=== PATIENT | male | born 1960 | race African-American/Black ===

== ENCOUNTER 2016-11-28 21:12 | Emergency (ER) | payer OTHER ==
[~2016-11-28] VITALS: Ht 175.3 cm; Wt 81.7 kg
[~2016-11-28 21:12] MED LIST: ACETAMINOPHEN650 M5 PO; ASPIRIN EC81 M1 PO; CLEOCIN HCL300 MG PO; CYCLOBENZAPRINE5 MG PO; FOSINOPRIL SODI40 M1 PO; GLUCOPHAGE1000 MG PO; IBUPROFEN 600600 M1 PO; LANTUS SC; LANTUS SUBQ; LEVEMIR SQ; MELOXICAM15 MG PO; NEURONTIN 300300 M1 PO; NORCO 5-325 TA1 EACH PO; NOVOLOG100 UNIT/1; NOVOLOG100 UNIT/1 SQ; NOVOLOG100 UNIT/1 SUBQ; OXYCODONE HCL15 MG PO; PERCOCET 5-3251 EACH PO; PHENERGAN 25 MG25 M1 PO; SIMVASTATIN40 MG PO; TYLENOL325 MG PO; UNICOMPLEX M TA1 TA1 PO; ZOFRAN4 MG PO; [UNRECOGNIZED DRUG - OTHER] PO
[2016-11-28] MEDS ORDERED: BUTALB-APAP-CA1 EACH PO (22:32)
[2016-11-28] MEDS ORDERED: ZOFRAN ODT8 MG PO (22:32)
== END 2016-11-28 22:39 | disposition home or self-care (01) ==
LOC: ER 21:12
DX: T38.3X5A Adverse effect of insulin and oral hypoglycemic [antidiabetic] drugs, initial encounter (principal); R51 Headache; R11.10 Vomiting, unspecified; Y92.89 Other specified places as the place of occurrence of the external cause; E11.9 Type 2 diabetes mellitus without complications; I10 Essential (primary) hypertension; Z91.041 Radiographic dye allergy status; F10.99 Alcohol use, unspecified with unspecified alcohol-induced disorder

== ENCOUNTER 2017-10-31 20:33 | Emergency (ER) | payer OTHER ==
[~2017-10-31] VITALS: Ht 175.3 cm; Wt 83.9 kg
--- NOTE | ~2017-10-31 | EKG ---
[place] [address] [facility] [place] [address] ELECTROCARDIOGRAM REPORT Name: SONAL MONTEIRO [id number] Admission: 10/31/17 Attend Phys: Discharge: 10/31/17 Date of : 60 Report #: [id number] THIS REPORT FOR: //name// [facility] ED Test Date: 2017-10-31 Test Time: 20:43:29 Pat Name: SONAL MONTEIRO Department: Room: Gender: M [employer] Supervisor: ANGELO : 1960 Requested By: Kenny Wayne Order Number: [id number] MD: Edwin Yi Measurements Intervals [place] Rate: 81 P: 43 MS: 145 QRS: 3 QRSD: 85 T: 23 QT: 372 QTc: 432 Interpretive Statements Sinus rhythm Probable left atrial enlargement Abnormal R-wave progression, early transition Compared to ECG 07/14/2014 23:51:35 No significant changes Electronically Signed On 11-01-2017 14:07:02 CDT by Edwin Yi [email or web address] <ELECTRONICALLY SIGNED> By: Edwin Yi MD, [facility] 11/01/17 1407 2043 42 Edwin Yi MD, FACC /EPI
[~2017-10-31 20:33] MED LIST changes: +BUTALB-APAP-CA1 EACH PO; +ZOFRAN ODT8 MG PO
[2017-10-31 20:58] LABS: ABSOLUTE NEUTROPHILS 6.9 thou/uL (1.4-8.2); BASOPHILS 0.8 % (0.0-2.0); EOSINOPHILS 1.3 % (0.0-3.0); HEMATOCRIT 41.5 % (42.0-52.0); LYMPHOCYTES 13.5 % (24.0-44.0); MCH 32.7 pg (26.0-34.0); MCHC 33.8 g/dL (28.0-37.0); MCV 96.6 fL (80.0-100.0); MONOCYTES 8.1 % (1.0-8.0); PLATELET COUNT 228 thou/uL (150-400); POLYS 76.3 % (36.0-66.0); RBC 4.29 mil/uL (4.50-6.00); RDW 13.8 % (10.5-14.5)
[2017-10-31 21:14] LABS: ANION GAP 8 mmol/L (7-16); BUN 10 mg/dL (7-18); CALCIUM 9.5 mg/dL (8.5-10.1); CHLORIDE 104 mmol/L (98-107); CO2 26 mmol/L (21-32); CREATININE 0.8 mg/dL (0.7-1.3); GLUCOSE 95 mg/dL (74-106); POTASSIUM 3.5 mmol/L (3.5-5.1); SODIUM 138 mmol/L (136-145)
[2017-10-31 21:17] LABS: TROPONIN-I < 0.04 ng/mL (<0.06)
[2017-10-31] MEDS ORDERED: HYDROCODONE-AP1 EAC6 PO (22:15)
[2017-10-31 22:25] VITALS: BP 123/60
== END 2017-10-31 22:36 | disposition home or self-care (01) ==
LOC: ER 20:33
PROVIDERS: Physician Assistant
DX: E11.649 Type 2 diabetes mellitus with hypoglycemia without coma (principal); M54.5 Low back pain; I10 Essential (primary) hypertension; Z79.4 Long term (current) use of insulin

== ENCOUNTER 2017-11-03 00:22 | Inpatient (IN) | payer OTHER ==
[2017-11-03] VITALS (7 sets, daily range): BP systolic 124–170; BP diastolic 62–94
[~2017-11-03] VITALS: Ht 175.3 cm; Wt 81.1 kg
[~2017-11-03 00:22] MED LIST changes: +HYDROCODONE-AP1 EAC6 PO
[2017-11-03 01:33] LABS: BASOPHILS 0.7 % (0.0-2.0); EOSINOPHILS 0.5 % (0.0-3.0); HEMATOCRIT 38.4 % (42.0-52.0); HEMOGLOBIN 13.2 gm/dL (14.0-18.0); LYMPHOCYTES 21.2 % (24.0-44.0); MCHC 34.5 g/dL (28.0-37.0); MCV 95.8 fL (80.0-100.0); MONOCYTES 8.8 % (1.0-8.0); PLATELET COUNT 220 thou/uL (150-400); POLYS 68.8 % (36.0-66.0); RBC 4.01 mil/uL (4.50-6.00); RDW 13.7 % (10.5-14.5); WBC 8.7 thou/uL (4.0-11.0)
[2017-11-03 01:40] LABS: ANION GAP 11 mmol/L (7-16); BUN 15 mg/dL (7-18); CALCIUM 8.5 mg/dL (8.5-10.1); CHLORIDE 103 mmol/L (98-107); CO2 26 mmol/L (21-32); CREATININE 0.8 mg/dL (0.7-1.3); GLUCOSE 150 mg/dL (74-106); POTASSIUM 3.7 mmol/L (3.5-5.1); SODIUM 140 mmol/L (136-145)
[2017-11-03 01:46] LABS: ALBUMIN 3.2 g/dL (3.4-5.0); DIRECT BILIRUBIN < 0.1 mg/dL (<0.1-0.3); SGOT 22 U/L (15-37); SGPT 24 U/L (30-65); TOTAL BILIRUBIN 0.3 mg/dL (<0.1-1.0); TOTAL PROTEIN 6.4 g/dL (6.4-8.2)
[2017-11-03 03:44] LABS: URINE BILIRUBIN NEGATIVE (Negative); URINE BLOOD NEGATIVE (Negative); URINE CLARITY CLEAR; URINE COLOR YELLOW; URINE GLUCOSE-RANDOM* 1+ (Negative); URINE KETONES NEGATIVE (Negative); URINE LEUKOCYTES-REFLEX NEGATIVE (Negative); URINE NITRITE-REFLEX NEGATIVE (Negative); URINE PROTEIN (DIPSTICK) NEGATIVE (Negative); URINE UROBILINOGEN 0.2 E.U./dl (0.2-1.0)
[2017-11-03 03:52] LABS: AMP/METHAMP Negative (Negative); BARBITURATES Negative (Negative); BENZODIAZEPINES Negative (Negative); COCAINE Negative (Negative); METHADONE Negative (Negative); OPIATES POSITIVE (Negative); PCP Negative (Negative)
[2017-11-04 06:44] LABS: ABSOLUTE NEUTROPHILS 5.6 thou/uL (1.4-8.2); BASOPHILS 0.8 % (0.0-2.0); EOSINOPHILS 0.5 % (0.0-3.0); HEMATOCRIT 39.9 % (42.0-52.0); HEMOGLOBIN 13.4 gm/dL (14.0-18.0); LYMPHOCYTES 24.4 % (24.0-44.0); MCH 32.7 pg (26.0-34.0); MCHC 33.6 g/dL (28.0-37.0); MCV 97.3 fL (80.0-100.0); MONOCYTES 9.6 % (1.0-8.0); PLATELET COUNT 210 thou/uL (150-400); POLYS 64.7 % (36.0-66.0); RDW 13.9 % (10.5-14.5); WBC 8.6 thou/uL (4.0-11.0)
[2017-11-04 06:58] LABS: CREATININE 0.9 mg/dL (0.7-1.3); POTASSIUM 4.6 mmol/L (3.5-5.1)
[2017-11-04 07:15] VITALS: BP 121/66
[2017-11-04 20:00] VITALS: BP 138/74
[2017-11-05 07:40] VITALS: BP 106/57
[2017-11-05] MEDS ORDERED: CELEBREX 200 M200 M1 PO (11:44)
[2017-11-05] MEDS ORDERED: HYDROCODONE-AP1 EAC6 PO (11:45)
[2017-11-05 16:09] VITALS: BP 106/57
== END 2017-11-05 16:22 | disposition home or self-care (01) | DRG 552 ==
LOC: ER 00:22 → EROBS 03:07 → 4N 03:48 → SICU 08:55 → ENTRNSPT 12:44 → EDTRNSPTSTS 12:47 → SICU 13:24
PROVIDERS: Emergency Medicine; Family Medicine
DX: M54.16 Radiculopathy, lumbar region (principal); I10 Essential (primary) hypertension; E78.5 Hyperlipidemia, unspecified; M19.90 Unspecified osteoarthritis, unspecified site; G89.29 Other chronic pain; E11.649 Type 2 diabetes mellitus with hypoglycemia without coma; M54.9 Dorsalgia, unspecified; Z79.4 Long term (current) use of insulin
CPT/HCPCS: 15002

== ENCOUNTER 2017-11-22 18:49 | Emergency (ER) | payer OTHER ==
[~2017-11-22] VITALS: Ht 175.3 cm; Wt 77.1 kg
[~2017-11-22 18:49] MED LIST changes: +CELEBREX 200 M200 M1 PO
[2017-11-22 19:25] LABS: ABSOLUTE NEUTROPHILS 5.2 thou/uL (1.4-8.2); BASOPHILS 0.9 % (0.0-2.0); EOSINOPHILS 0.9 % (0.0-3.0); HEMOGLOBIN 14.2 gm/dL (14.0-18.0); LYMPHOCYTES 18.4 % (24.0-44.0); MCHC 33.8 g/dL (28.0-37.0); MCV 97.7 fL (80.0-100.0); MONOCYTES 5.8 % (1.0-8.0); PLATELET COUNT 227 thou/uL (150-400); RDW 13.6 % (10.5-14.5)
[2017-11-22 19:42] LABS: CALCIUM 9.6 mg/dL (8.5-10.1); CREATININE 0.9 mg/dL (0.7-1.3); DIRECT BILIRUBIN 0.2 mg/dL (<0.1-0.3); POTASSIUM 4.6 mmol/L (3.5-5.1); TOTAL BILIRUBIN 0.7 mg/dL (<0.1-1.0); TOTAL PROTEIN 7.4 g/dL (6.4-8.2)
[2017-11-22 19:51] LABS: URINE BILIRUBIN NEGATIVE (Negative); URINE BLOOD NEGATIVE (Negative); URINE CLARITY CLEAR; URINE COLOR YELLOW; URINE GLUCOSE-RANDOM* 3+ (Negative); URINE KETONES 2+ (Negative); URINE LEUKOCYTES NEGATIVE (Negative); URINE NITRITE NEGATIVE (Negative); URINE PROTEIN (DIPSTICK) NEGATIVE (Negative); URINE SPECIFIC GRAVITY <= 1.005 (1.005-1.035); URINE UROBILINOGEN 0.2 E.U./dl (0.2-1.0)
== END 2017-11-22 21:23 | disposition home or self-care (01) ==
LOC: ER 18:49
PROVIDERS: Nurse Practitioner
DX: E11.65 Type 2 diabetes mellitus with hyperglycemia (principal); E87.1 Hypo-osmolality and hyponatremia; I10 Essential (primary) hypertension; E78.5 Hyperlipidemia, unspecified; G89.29 Other chronic pain; M54.9 Dorsalgia, unspecified; Z79.4 Long term (current) use of insulin

== ENCOUNTER 2019-06-14 10:50 | Inpatient (IN) | payer OTHER ==
[~2019-06-14] VITALS: Ht 175.3 cm; Wt 79.8 kg
[2019-06-14] VITALS (34 sets, daily range): BP systolic 117–205; BP diastolic 59–124
[2019-06-14 11:09] LABS: BE(vivo) -29.9 mmol/L (-2 to +3); HCO3 5.1 mmol/L (22.0-26.0); PO2 VENOUS 51.8 mmHg (35.0-45.0)
[2019-06-14 11:15] LABS: HEMATOCRIT 51.1 % (42.0-52.0); HEMOGLOBIN 15.1 gm/dL (14.0-18.0); MCH 31.7 pg (26.0-34.0); MCHC 29.6 g/dL (28.0-37.0); MCV 107.1 fL (80.0-100.0); PLATELET COUNT 324 thou/uL (150-400); RBC 4.77 mil/uL (4.50-6.00); RDW 15.4 % (10.5-14.5); WBC 23.2 thou/uL (4.0-11.0)
[2019-06-14 11:24] LABS: ALBUMIN 3.9 g/dL (3.4-5.0); BUN 19 mg/dL (7-18); CALCIUM 10.2 mg/dL (8.5-10.1); CHLORIDE 95 mmol/L (98-107); CREATININE 1.7 mg/dL (0.7-1.3); POTASSIUM 5.9 mmol/L (3.5-5.1); SGOT 49 U/L (15-37); SGPT 108 U/L (30-65); SODIUM 133 mmol/L (136-145); TOTAL BILIRUBIN 0.7 mg/dL (<0.1-1.0); TOTAL PROTEIN 9.1 g/dL (6.4-8.2); TROPONIN-I <0.06 ng/mL (<0.06)
[2019-06-14 11:26] LABS: ANION GAP 32 mmol/L (7-16)
[2019-06-14 11:28] LABS: CO2 6 mmol/L (21-32); GLUCOSE 640 mg/dL (74-106)
[2019-06-14 11:54] LABS: URINE BILIRUBIN NEGATIVE (Negative); URINE BLOOD TRACE (Negative); URINE CLARITY CLEAR; URINE COLOR YELLOW; URINE GLUCOSE-RANDOM* 3+ (Negative); URINE KETONES 3+ (Negative); URINE LEUKOCYTES-REFLEX NEGATIVE (Negative); URINE NITRITE-REFLEX NEGATIVE (Negative); URINE PROTEIN (DIPSTICK) TRACE (Negative); URINE SPECIFIC GRAVITY 1.025 (1.005-1.035); URINE UROBILINOGEN 0.2 E.U./dl (0.2-1.0)
[2019-06-14 11:56] LABS: ABSOLUTE NEUTROPHILS 18.3 thou/uL (1.4-8.2); NUCLEATED RBCS 1 /100WBC; PLATELET ESTIMATE NORMAL
[2019-06-14 11:57] LABS: ANISOCYTOSIS 1+; MACROCYTES 2+
--- NOTE | 2019-06-14 12:40 | NUR ---
CORRECTED SODIUM 139.9, START 1/2 NS AT 250 CC /HR PER DKA PROTOCOL.
--- NOTE | 2019-06-14 13:20 | NUR ---
Pt arrived ICU via cart, accompanied with ER staff. He is lethargic, restless with agitation notes. He is being admit for DKA. He is hyperventilate, RR in mid 40's. O2 sat 100% noted on monitor. 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 BP elevated, denies of any symptoms. IVF and insulin infusing w/o any difficulty. Hx obtained from his sister. Assessment completed. Continue working toward DKA goals.
[2019-06-14 13:49] LABS: BE(vivo) -29.3 mmol/L (-2 to +3); HCO3 2.3 mmol/L (22.0-26.0); PO2 149.9 mmHg (80.0-100.0); sO2 97.2 % (92.0-98.0)
[2019-06-14 13:55] LABS: pH 6.903 (7.360-7.450)
[2019-06-14 13:56] LABS: PCO2 11.8 mmHg (35.0-45.0)
[2019-06-14 15:38] LABS: CALCIUM 9.5 mg/dL (8.5-10.1); CREATININE 1.7 mg/dL (0.7-1.3); MAGNESIUM 2.5 mg/dL (1.8-2.4)
[2019-06-14 15:40] LABS: POTASSIUM 5.2 mmol/L (3.5-5.1)
[2019-06-14 15:41] LABS: AMP/METHAMP Negative (Negative); BARBITURATES Negative (Negative); BENZODIAZEPINES Negative (Negative); COCAINE Negative (Negative); METHADONE Negative (Negative); OPIATES Negative (Negative); PCP Negative (Negative)
--- NOTE | 2019-06-14 19:00 | NUR ---
Pt had been much more calmer after receiving ativan. He remains very tachypneic. O2 sat has been reading mid 90's or better. Denies of any pain. BP had improved with hydralazine IV. Continue to be tachycardia. Blood sugar has been improved. Continue insulin gtt and IVF per DKA protocol.
[2019-06-14 19:38] LABS: CALCIUM 9.5 mg/dL (8.5-10.1); CREATININE 1.9 mg/dL (0.7-1.3); MAGNESIUM 2.3 mg/dL (1.8-2.4)
[2019-06-14 23:38] LABS: CALCIUM 8.4 mg/dL (8.5-10.1); CREATININE 1.5 mg/dL (0.7-1.3); MAGNESIUM 2.1 mg/dL (1.8-2.4)
[2019-06-14 23:44] LABS: POTASSIUM 6.3 mmol/L (3.5-5.1)
[2019-06-15] VITALS (18 sets, daily range): BP systolic 104–160; BP diastolic 42–76
[2019-06-15 03:43] LABS: CALCIUM 8.5 mg/dL (8.5-10.1); CREATININE 1.5 mg/dL (0.7-1.3); MAGNESIUM 1.9 mg/dL (1.8-2.4)
[2019-06-15 04:18] LABS: POTASSIUM 4.2 mmol/L (3.5-5.1)
[2019-06-15 06:08] LABS: GLYCOHEMOGLOBIN (HGB A1C) 10.3 % (4.8-5.6)
[2019-06-15 08:07] LABS: CREATININE 1.3 mg/dL (0.7-1.3); MAGNESIUM 1.9 mg/dL (1.8-2.4); POTASSIUM 3.6 mmol/L (3.5-5.1)
--- NOTE | 2019-06-15 08:15 | HC ---
[facility] [place] [address] CONSULTATION Name: SONAL MONTEIRO Room #: 239-P [facility] IN M.R.#: [id number] Admission: 06/14/19 Attend Phys: Tylor Ramey MD Discharge: Date of : 60 Report #: [id number] THIS REPORT FOR: //name// CC: Tylor Kraus DATE OF SERVICE: 06/14/2019 ENDOCRINE CONSULTATION NOTE CONSULTING PHYSICIAN: Dr. Ramey. REASON FOR CONSULTATION: DKA, uncontrolled type 2 diabetes mellitus. HISTORY OF PRESENT ILLNESS: This is a 59-year-old male patient whose medical background is known for type 2 diabetes mellitus, hypertension and hyperlipidemia. The patient was brought into the ER by his sister due to progressive issues with hyperglycemia and altered mental status. The patient was too lethargic and confused to provide a meaningful history, so his sister provided much of this background. She notes that he had suffered what appears to be a case of food poisoning a few days ago and had been dealing with intractable nausea, vomiting and diarrhea and has been unable to maintain consistent p.o. intake. During that time, he was unable to utilize his usual insulin therapy and his blood glucose levels have risen progressively to where she decided to eventually bring him in. During this time, the patient was getting more progressively lethargic, unresponsive, dizzy, tired and when brought to the ER, he was found to have blood glucose values over 600 and obvious diabetic ketoacidosis. The patient was then admitted for further care and monitoring. The patient has had diabetes mellitus for many years and is maintained on insulin therapy. His sister was unable to provide details on the specifics of that therapy, but believes he is on Lantus insulin 40 units q.p.m. in addition to NovoLog insulin before meals, unknown dose, in addition to metformin 1000 mg b.i.d. She notes that under normal circumstances his blood glucose control is rather good and he usually would have values in the 100 mg/dL range without much hypoglycemia. She notes that he had possibly had a DKA episode occur over 5 years ago, but not since then. The patient is not known to have diabetic retinopathy, but does have diabetic neuropathy for which he takes gabapentin. He also has hypertension and hyperlipidemia for which he takes simvastatin. He is not known to have coronary artery disease. REVIEW OF SYSTEMS: CONSTITUTIONAL: Fatigue, tiredness, but not fever or chills. [address] [address] CONSULTATION Name: SONAL MONTEIRO Room #: 239-P [facility] IN .R.#: [id number] Admission: 06/14/19 Attend Phys: Tylor Ramey MD Discharge: Date of : 60 Report #: [id number] HEENT: No reports of active sore throat, sinus pain or ear drainage. PULMONARY: No reports of shortness of breath, cough or hemoptysis. CARDIAC: No reports of palpitations, chest pain, syncope, presyncope or worsening edema. GASTROINTESTINAL: Noted for intractable nausea, vomiting, diarrhea and abdominal discomfort. NEUROLOGY: Noted for deepening lethargy, dizziness, lightheadedness, weakness, but not loss of consciousness or seizure activity. PSYCHIATRY: No reports of delusions, hallucinations. Otherwise, his reported review of systems is noncontributory. PAST MEDICAL HISTORY: 1. Type 2 diabetes mellitus as noted above. 2. Hypertension. 3. Hyperlipidemia. 4. Diabetic neuropathy. 5. Chronic back pain issues. ACTIVE MEDICATIONS: Include metformin 1000 mg b.i.d., meals; Lantus insulin 40 units subcutaneously at bedtime; NovoLog insulin before meals, unknown dose; gabapentin 300 mg daily; multivitamins daily; Monopril 40 mg daily; simvastatin 40 mg daily; aspirin 81 mg daily and oxycodone 15 mg q.6 hours p.r.n. pain. ALLERGIES: No known drug allergies. FAMILY HISTORY: Noncontributory. SOCIAL HISTORY: The patient is , has 2 children. Does not actively smoke, drink or use illicit drugs. PHYSICAL EXAMINATION: GENERAL: This is an -[place] male patient who is lethargic, unresponsive to verbal stimuli, unable to answer my questions, seems distressed. VITAL SIGNS: Blood pressure is 138/85 mmHg, heart rate is 133 beats per minute, respirations ____ per minute, temperature 36 degrees. CONSTITUTIONAL: The patient appears distressed lethargic. HEENT: Anicteric sclerae, unable to assess extraocular movements as the patient is unable to cooperate with a full physical examination. HEENT: Negative for JVD, carotid bruits or lymphadenopathy. No thyromegaly. CHEST: Noted for moderate entry bilaterally. Scattered rales and rhonchi, but not wheezes or crackles. HEART: Tachycardic without murmurs or gallops. ABDOMEN: Soft and lax without tenderness or organomegaly, has active bowel sounds. EXTREMITIES: Lower extremity exam is noted for trace ankle edema bilaterally without skin breaks, ulcerations or other deformities. [address] [address] CONSULTATION Name: SONAL MONTEIRO Room #: 239-P ADM IN M.R.#: [id number] Admission: 06/14/19 Attend Phys: Tylor Ramey MD Discharge: Date of : 60 Report #: [id number] NEUROLOGIC: The patient is lethargic, somnolent and unable to arouse, unable to cooperate with a full exam, moves all limbs spontaneously. SKIN: Generally, no ulceration, rash or other major abnormalities. LABORATORY STUDIES: Blood glucose on arrival was over 500 mg/dL and just before the time of this dictation had dropped to 340 mg/dL. Sodium 133, potassium 6.3, chloride 95, anion gap 32, BUN 19, creatinine 1.7, glucose 557. AST 49, lipase 43, total bilirubin 0.7, direct bilirubin 0.2, calcium 10.2, phosphorus 7.2, magnesium 2.7, alkaline phosphatase 333, ALT 108, total protein 9.1, albumin 3.9, GFR 50, ammonia 28, lactic acid 5.1. Troponin undetectable. Total cholesterol, that is old. Acetone was high at 1.73. ASSESSMENT AND PLAN: 1. Diabetic ketoacidosis. As noted above, the patient has had a fairly severe GI ailment over the past few days, which resulted in intractable nausea and vomiting and subsequent dehydration and interruption of his usual insulin therapy. Eventually, the patient presented with a clinical outlook and laboratory evidence of diabetic ketoacidosis. Given this outlook, the patient was appropriately admitted to the ICU, where he is to receive aggressive supportive care with IV fluids and IV insulin as per the [facility]'s IV insulin protocol. Electrolytes and fluid status will be evaluated frequently during this time at intervals of every 4 hours. Blood gases will be checked periodically as well. The patient will be maintained on these measures until we were able to safely wean him off to a subcutaneous insulin therapy when he proves to be stable and able to do so. Blood glucose monitoring will commence every hour to help adjust his insulin therapy as needed. I will obtain a hemoglobin A1c to get a better assessment of his overall glycemic control over the past few months. 2. Type 2 diabetes mellitus. As noted above, according to the reports provided by the patient's sister, he has been under adequate control for the past few years and the current occurrence of DKA is not a usual issue for him. She indicates that he has been compliant with therapy and maintains adequate control on a daily basis. Also, there are no reports of active diabetic complications that she knows of. Hemoglobin A1c will be obtained to get a better feel for his level of control over the months preceding this presentation. 3. Hypertension. Pending the patient's clinical stability, he will be maintained off antihypertensive medicines. This will be reevaluated once he is more clinically stable. 4. Hyperlipidemia. Lipid-lowering therapy will be resumed once the patient is clinically stable to allow that. I certainly appreciate this consultation by Dr. Ramey. <ELECTRONICALLY SIGNED> By: Alicia Michaels MD 06/15/19 0815 1538 [id number] Alicia Michaels MD /nt
--- NOTE | 2019-06-15 10:36 | NUR ---
Case opened to follow for dc planning. Pt is currently in ICU with DKA. Joiner Helper spoke with the pt at bedside. He is drowsey and unable to fully participate ing cm assessment. He lives with his sister and she is his dpoa. He is retired and has been indep in the past. He states he does have trouble getting around. No family here at present. Will ask for therapy evals and revisit with the pt once he is better able to discuss any dc planning needs. He has insurance coverage and his pcp is Dr. Radha Kraus. Pt's A1C was 10 and it is unclear if he has been getting his diabetic meds. Pt could benefit from DM education. Will follow.
[2019-06-15 12:22] LABS: CALCIUM 8.8 mg/dL (8.5-10.1); MAGNESIUM 1.9 mg/dL (1.8-2.4); POTASSIUM 3.4 mmol/L (3.5-5.1)
[2019-06-15 15:27] LABS: CALCIUM 9.4 mg/dL (8.5-10.1)
--- NOTE | 2019-06-15 16:32 | NUR ---
ASSESSMENTS AND INTERVENTIONS DOCCUMENTED. PATIENT STILL LETHARGIC DURING SHIFT CHANGE. BS REGULATED AND DRIP AND FLUIDS CHANGED ACCORDING TO PROTOCOL. SISTER AT BED SIDE AND EDUCATED ON THE PLAN OF CARE. DIET ADVANCED TO CLEAR LIQUIDS PER ENDOCRINOLOGY. PATIENT STILL DROWSY BUT WAS ABLE TO TOLERATE CLEAR LIQIDS. THE PLAN OF CARE IS TO CONITNUE TO MONITOR THE BLOOD SUGAR AND LABS.
[2019-06-15 17:12] LABS: BE(vivo) -4.3 mmol/L (-2 to +3); HCO3 18.6 mmol/L (22.0-26.0); PCO2 28.2 mmHg (35.0-45.0); PO2 82.4 mmHg (80.0-100.0); pH 7.436 (7.360-7.450); sO2 96.6 % (92.0-98.0)
[2019-06-16] VITALS (16 sets, daily range): BP systolic 111–174; BP diastolic 54–86
[2019-06-16 04:12] LABS: POTASSIUM 3.4 mmol/L (3.5-5.1)
[2019-06-16 05:22] LABS: HEMATOCRIT 34.9 % (42.0-52.0); MCH 32.5 pg (26.0-34.0); MCHC 33.6 g/dL (28.0-37.0); RBC 3.62 mil/uL (4.50-6.00); RDW 13.7 % (10.5-14.5); WBC 9.6 thou/uL (4.0-11.0)
--- NOTE | 2019-06-16 05:26 | NUR ---
Received report from LEONORA Ramsey and assumed patient care at 1900. Per MD Roxy stated not to draw labs Q4H per DKA protocol but to draw at 0300. Patient awakens easily to voice but noted to be very drowsy throughout this shift. No distress was noted and VS remained stable. Patient complained of a headache but refused the Motrin that was ordered stating it does not work for him and he usually goes across the street to get a Toradol shot when he gets a headache at home. Patient monitored closely.
[2019-06-16 05:56] LABS: HEMOGLOBIN 11.8 gm/dL (14.0-18.0); MCV 96.6 fL (80.0-100.0)
--- NOTE | 2019-06-16 09:16 | NUR ---
Assess due to pt with dx DKA, admitted with BG >600. Poor dm control, A1C 10.3. Had n/v/d, ? food poisoning and unable to use usual insulin dosing prior admit. Endocrolonogist following, will come off insulin drip today and change to SQ. Pt has been lethargic, but starting to improve. Low nutrition risk. Will follow for any nutrition education needs once pt more stable and transfers out of ICU
--- NOTE | 2019-06-16 17:16 | NUR ---
ASSUMED CARE OF PT AT 0700, PT IS GCS OF 15, DENIES ANY DISCOMFORT. VSS AND HAS BEEN AFIBRILE. ORDERS RCVD TO TRANSFER PT OUT OF ICU. PT TO CALL FAMILY PER HIS REQUEST. REPORT CALLED AND GIVEN TO ACCEPTING NURSE.
--- NOTE | 2019-06-16 18:31 | NUR ---
ASSUMED CARE AT 1300, SHIFT ASSESSMENT DONE, VSS. DENIES PAIN, NAUSEA, VOMITING. ADVANCED TO ADA DIET, SNACK GIVEN FROM THE [place], TOLERATED WELL. BS WAS 47 BEFORE DINNER, APPLE JUICE GIVEN, CAME UP TO 63. ATE 80% OF DINNER. WILL CONTINUE TO ASSESS AND ASSIST WITH ADLs NEEDED.
--- NOTE | 2019-06-17 05:51 | NUR ---
PT. RESTED QUIETLY AT INTERVALS DURING THE NIGHT WHEN CHECKED ON DURING FREQUENT ROUNDS. HE C/O NAUSEA AND HAS BEEN GIVEN ZOFRAN TIMES 2 (SEE EMAR) WITH SOME RELIEF VERBALIZED. PT. ALSO C/O ABDOMINAL PAIN AND WAS GIVEN PAIN MED (SEE EMAR) WITH LITTLE RELIEF.
[2019-06-17 08:45] VITALS: BP 132/86
--- NOTE | 2019-06-17 12:05 | EKG ---
[address] [address] ELECTROCARDIOGRAM REPORT Name: SONAL MONTEIRO Room #: 464-P ADM IN M.R.#: [id number] Admission: 06/14/19 Attend Phys: Tylor Ramey MD Discharge: Date of : 60 Report #: [id number] THIS REPORT FOR: //name// [facility] ED Test Date: 2019-06-14 Test Time: 10:58:55 Pat Name: SONAL MONTEIRO Department: Room: 464 Gender: M Sticker On: [facility] : 1960 Requested By: Marquita Sawyer Order Number: [id number] MD: Ronak Oh Measurements Intervals [place] Rate: 130 P: 68 NH: 154 QRS: 32 QRSD: 79 T: 53 QT: 319 QTc: 469 Interpretive Statements Sinus tachycardia Left atrial enlargement Nonspecific ST segment abnormalities Compared to ECG 10/31/2017 20:43:29 Sinus rhythm no longer present Electronically Signed On 06-17-2019 12:05:33 MACHINE PROGRAMMER by Ronak Oh [email or web address] <ELECTRONICALLY SIGNED> By: Ronak Oh MD 06/17/19 1205 1058 1058 MD DEEP Lemons
--- NOTE | 2019-06-17 16:42 | NUR ---
PT ASSESSED PT AND INDICATED THAT HE IS SAFE TO RETURN HOME MOBILITY JAMISON UPON DC. PREVIOUSLY INDICATED PT WOULD BENEFIT FROM DM EDUCATION PRIOR TO DC. IF PT NEEDS HH UPON DC [facility] CARE TEAM INDICATED PROBABLE DC HOME TOMORROW.
--- NOTE | 2019-06-17 19:34 | NUR ---
Assumed pt care this am, vs have been stable, blood sugars monitored and apropriates insulin ginve as per the emar. Nausea was noted and relief was noted after zofran was given. No painm was noted during the shift. Pt was able to take a complete shower on his own. PT worked with the pt and was declaired not to be qa fall risk. POC followed, no signs or verbalizations of distress have bee noted. Pt is determined to go home tomorrow am. Endorsed to the night nurse.
[2019-06-17 21:00] VITALS: BP 115/79
[2019-06-18 04:30] VITALS: BP 129/71
--- NOTE | 2019-06-18 05:45 | NUR ---
Pt. rested quietly at intervals during the night when checked on during frequent rounds. His hs blood sugar was 51 and juice was given. Blood sugar recheck was 126. He offers no c/o pain or nausea.
[2019-06-18 07:16] VITALS: BP 112/53
[2019-06-18] MEDS ORDERED: HUMALOG100 UNIT/1 SUBQ (08:40)
[2019-06-18] MEDS ORDERED: LANTUS SUBQ (08:40)
[2019-06-18 09:58] VITALS: BP 112/53
--- NOTE | 2019-06-18 10:14 | NUR ---
Patient Discharged at this time. He was educated on his prescriptions and Discharge Paperwork. Patient verbalized an understanding of all Discharge Instructions before signing this paperwork. Vital signs are stable. Patient voices no concerns. POC followed.
== END 2019-06-18 10:19 | disposition home or self-care (01) | DRG 637 ==
LOC: ER 10:50 → EROBS 11:46 → ICU 11:46 → 4W 06-16 13:53
PROVIDERS: Internal Medicine; Physician Assistant; ADMIT Hospitalist
DX: E10.10 Type 1 diabetes mellitus with ketoacidosis without coma (principal); N17.0 Acute kidney failure with tubular necrosis; I10 Essential (primary) hypertension; E78.5 Hyperlipidemia, unspecified; G89.29 Other chronic pain; M54.9 Dorsalgia, unspecified; F32.9 Major depressive disorder, single episode, unspecified; F41.9 Anxiety disorder, unspecified; E87.5 Hyperkalemia; E10.40 Type 1 diabetes mellitus with diabetic neuropathy, unspecified; D72.829 Elevated white blood cell count, unspecified; R10.9 Unspecified abdominal pain; Z79.84 Long term (current) use of oral hypoglycemic drugs; Z79.899 Other long term (current) drug therapy; Z79.82 Long term (current) use of aspirin; Z87.891 Personal history of nicotine dependence; Z88.5 Allergy status to narcotic agent; Z91.040 Latex allergy status
CPT/HCPCS: 10047; 10078

== ENCOUNTER → 2020-02-23 | Outpatient (CLI) | payer OTHER ==
[~2020-02-23] MED LIST changes: +HUMALOG100 UNIT/1 SUBQ
== END ==
LOC: SJCVCIMAG 08:47
PROVIDERS: ATTEND Internal Medicine
DX: I25.10 Atherosclerotic heart disease of native coronary artery without angina pectoris (principal); I10 Essential (primary) hypertension; R93.1 Abnormal findings on diagnostic imaging of heart and coronary circulation; E11.9 Type 2 diabetes mellitus without complications